=== PATIENT | male | born 1965 | race Caucasian/White ===

== ENCOUNTER → 2019-09-24 21:23 | Outpatient (CLI) | payer MEDICAID ==
[2019-09-24 21:38] LABS: EOSINOPHILS 4.3 % (0-7); HEMATOCRIT 48.4 % (42.0-54.0); HEMOGLOBIN 15.5 g/dL (13.5-17.5); IMMATURE GRANULOCYTES 0.2 % (0-5); LYMPHOCYTES 31.5 % (15-50); MEAN PLATELET VOLUME 10.5 fL (7.4-10.4); MONOCYTES 10.5 % (2-11); NEUTROPHILS 52.5 % (40-80); PLATELET COUNT 214 10x3/uL (130-400); RBC 4.84 10x6/uL (4.20-6.10); RDW 13.8 % (11.5-14.5); WBC 6.1 10x3/uL (4.8-10.8)
[2019-09-24 22:49] LABS: ERYTHROCYTE SEDIMENTATION RATE 1 mm/hr (0-20)
== END | disposition home or self-care (01) ==
LOC: D.LABREF 21:23
PROVIDERS: ATTEND Clinical Nurse Specialist Family Health
DX: M25.552 Pain in left hip (principal)

== ENCOUNTER → 2019-10-03 18:08 | Outpatient (CLI) | payer MEDICAID | END | disposition home or self-care (01) | LOC: D.LABREF 18:08 | PROVIDERS: ATTEND Orthopaedic Surgery | DX: M16.12 Unilateral primary osteoarthritis, left hip (principal) ==

== ENCOUNTER 2019-10-07 10:58 | Inpatient (IN) | payer MEDICAID ==
[~2019-10-07] VITALS: Ht 193 cm; Wt 127.3 kg
[2019-10-08] MEDS ORDERED: LIPITOR40 MG PO (14:20)
[2019-10-08] MEDS ORDERED: ASPIRIN EC81 M1 PO (14:20)
[2019-10-08] MEDS ORDERED: CYMBALTA60 MG PO (14:21)
[2019-10-08] MEDS ORDERED: LISINOPRIL40 MG PO (14:21)
[2019-10-08] MEDS ORDERED: TOPROL XL100 MG PO (14:21)
[2019-10-08] MEDS ORDERED: TRIAMTERENE-HC1 EAC3 PO (14:22)
[2019-10-09 11:41] LABS: EOSINOPHILS 4.6 % (0-7); HEMATOCRIT 48.7 % (42.0-54.0); IMMATURE GRANULOCYTES 0.1 % (0-5); LYMPHOCYTES 33.4 % (15-50); MCH 31.8 pg (26.0-34.0); MCHC 32.9 g/dL (31.0-37.0); MCV 96.8 fL (80.0-100.0); MONOCYTES 9.4 % (2-11); NEUTROPHILS 51.5 % (40-80); PLATELET COUNT 239 10x3/uL (130-400); RBC 5.03 10x6/uL (4.20-6.10); RDW 13.2 % (11.5-14.5); WBC 7.3 10x3/uL (4.8-10.8)
[2019-10-09 11:47] LABS: ANION GAP 7.8 mmol/L (8-16); CALCIUM 9.2 mg/dL (8.5-10.1); CARBON DIOXIDE 34.3 mmol/L (21.0-32.0); CREATININE - SERUM 1.3 mg/dL (0.6-1.3); POTASSIUM - SERUM 4.1 mmol/L (3.5-5.1)
[2019-10-09 11:50] LABS: INR 0.89 (0.85-1.17); PROTIME 12.1 SECONDS (11.6-15.0)
[2019-10-09 12:47] LABS: BILIRUBIN NEGATIVE (NEGATIVE); GLUCOSE NEGATIVE (NEGATIVE); KETONE NEGATIVE (NEGATIVE); NITRITE NEGATIVE (NEGATIVE); SPECIFIC GRAVITY 1.015 (1.005-1.020)
[2019-10-15 11:40] VITALS: BP 108/60; BMI 34.1
--- NOTE | 2019-10-15 20:10 | NUR ---
OK FOR PATIENT TO D/C TO MED 3 PER ANESTHESIA ON 6L [facility].
[2019-10-15 20:31] VITALS: BP 93/55
[2019-10-15 20:40] VITALS: BP 93/55; Ht 193 cm; Wt 127.3 kg
--- NOTE | 2019-10-15 21:16 | NUR ---
PT ARRIVED FROM PACU A&O. VS WNL. PT C/O PAIN IN RIGHT BUTTOCKS. RE-POSITIONED AND REMOVED EXTRA BEDDING. PIV IN RIGHT HAND, PATENT, NON TENDER, NO REDNESS OR SWELLING. INFUSING 1/2NS AT 50ML/HR. DRESSING ON LEFT HIP, DRY AND INTACT. PT O2 AT 96% ON 6L NC. PT USES CPAP FOR SLEEP APNEA AT NIGHT, SET IT UP NEXT TO BED. PT STATES PAIN AT 8/10, ADMIN PAIN MEDS PER ORDER. PT HAS 2500ML INPUT DURING OP, HAS NOT HAD OUTPUT YET. EDUCATED PT ON ISP, PT VERBALIZED UNDERSTANDING. EDUCATED PT ON CL FOR ANY NEEDS, VERBALIZED UNDERSTANDING. BED LOW, RAILS X2. CL IN REACH. WILL CONTINUE TO MONITOR.
[2019-10-16] VITALS: BP 113/74
[2019-10-16 03:50] VITALS: BP 143/83
--- NOTE | 2019-10-16 07:00 | NUR ---
PT RESTING IN BED WITH SPOUSE AT BEDSIDE. RESP EVEN AND UNLABORED. REPORTS PAIN 5/10 AT THIS TIME TO LEFT THIGH. IV TO RIGHT HAND WITH 1/2 NS @ 100ML/HR INFUSING VIA PUMP. SITE WITHOUT REDNESS OR EDEMA. DRESSING C/D/I TO LEFT GROIN. SCD'S IN PLACE TO BILAT LOWER EXTREMITIES. DENIES FURTHER NEEDS AT THIS TIME. CL WITHIN REACH. ENCOURAGED TO CALL WITH NEEDS. CONTINUE POC
[2019-10-16 07:18] LABS: HEMATOCRIT 37.5 % (42.0-54.0); HEMOGLOBIN 12.1 g/dL (13.5-17.5); MCH 31.3 pg (26.0-34.0); MCHC 32.3 g/dL (31.0-37.0); MCV 96.9 fL (80.0-100.0); RBC 3.87 10x6/uL (4.20-6.10); RDW 13.2 % (11.5-14.5); WBC 9.5 10x3/uL (4.8-10.8)
[2019-10-16 07:36] VITALS: BP 98/53
--- NOTE | 2019-10-16 08:30 | NUR ---
PT ASSISTED FROM BED TO BR WITH WALKER WITH MINIMAL ASSISTANCE. PT ABLE TO VOID AT THIS TIME. PT REQUEST TO SIT UP IN CHAIR AT BEDSIDE. [address] CL WITHIN REACH. INSTRUCTED PT TO CALL WITH ASSISTANCE IN TRANSFERING. PT VOICES UNDERSTANDING.
--- NOTE | 2019-10-16 08:45 | MORECARE ---
CASE MANAGEMENT DISCHARGE SUMMARY PATIENT: BRAULIO GONZALEZ JOSÉ MIGUEL UNIT: [id number] ADM DATE: 10/15/19 AGE: 54 : 67 SEX: M ROOM/BED: D.1211 AUTHOR: EROS SAWYER PHYSICIAN: REFERRING PHYSICIAN: AMY RAINEY DO DATE OF SERVICE: 10/16/19 Discharge Plan Patient Name: BRAULIO GONZALEZ Facility: [facility]:[place] : 1965 Planned Disposition: Home or Self Care Anticipated Discharge Date: Discharge Date: Expected LOS: Initial Reviewer: [email or web address] Initial Review Date: 10/15/2019 Generated: 10/16/19 9:45 am DCPIA - Discharge Planning Initial Assessment Updated by [email or web address]: Gardenia Jackson on 10/16/19 8:43 am * Is the patient Alert and Oriented? Yes * How many steps to enter\exit or inside your home? * PCP [facility] * [facility]acy [facility] * Preadmission Environment Home with Family * ADLs Independent * Equipment CPAP * List name and contact numbers for known caregivers / representatives who currently or will assist patient after discharge: ERIK () [phone] * Verbal permission to speak to the caregivers and representatives has been obtained from the patient. N/A * Community resources currently utilized None * Additional services required to return to the preadmission environment? Yes * Can the patient safely return to the preadmission environment? Yes * Has this patient been hospitalized within the prior 30 days at any hospital? No Patient Name: BRAULIO GONZALEZ Page [id number] at 0845 All edits/amendments must be made on the electronic document DICTATION DATE: 10/16/19844 WIRELESS SALES ASSOCIATE: BRADEN 10/16/19844 RPT#: [id number] DC DATE: STATUS: ADM IN [facility] [address] [place] [address] END OF REPORT
--- NOTE | 2019-10-16 09:05 | MORECARE ---
CASE MANAGEMENT DISCHARGE SUMMARY PATIENT: BRAULIO GONZALEZ JOSÉ MIGUEL UNIT: [id number] ADM DATE: 10/15/19 AGE: 54 : 67 SEX: M ROOM/BED: D.1211 AUTHOR: EROS SAWYER PHYSICIAN: REFERRING PHYSICIAN: AMY YANG DO DATE OF SERVICE: 10/16/19 Discharge Plan Patient Name: BRAULIO GONZALEZ Facility: [facility]:[place] : 1965 Planned Disposition: Home or Self Care Anticipated Discharge Date: Discharge Date: Expected LOS: Initial Reviewer: [email or web address] Initial Review Date: 10/15/2019 Generated: 10/16/19 10:04 am DCP- Discharge Planning Updated by [email or web address]: Gardenia Jackson on 10/16/19 7:[address] Patient Name: BRAULIO GONZALEZ Admission Status: Elective Accout number: [id number] Admission Date: 10-15-2019 : 1965 Admission Diagnosis: Attending: AMY YANG Current LOS: 1 Anticipated DC Date: Planned Disposition: Home or Self Care Primary Insurance: MEDICAID [place] Discharge Planning Comments: CM met with patient to complete initial dc planning assessment. CM educated patient on the CM role and verbal consent given by patient to complete assessment. Patient lives at home with his spouse where he is independent with his care. At discharge patient plans to return home and feels this is a safe discharge. 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 CM discussed availability of home health, rehab services, and medical equipment. He uses a CPAP at home. He stated that he needs a walker, I have called [facility] and spoke with Jenna and she has his order and will deliver it to the hospital when he is discharged. The patient does not think he needs physical therapy when discharged. He does it on his own. We will need to check with dr yang about that. Patient denied known discharge needs at this time. CM will continue to follow and will assist as needed with dc plans/needs. Police Captain: Gardenia Jackson DCPIA - Discharge Planning Initial Assessment Updated by [email or web address]: Gardenia Jackson on 10/16/19 8:43 am * Is the patient Alert and Oriented? Yes * How many steps to enter\exit or inside your home? * PCP [facility] * [facility] * Preadmission Environment Home with Family * ADLs Independent * Equipment CPAP * List name and contact numbers for known caregivers / representatives who currently or will assist patient after discharge: ERIK () [phone] * Verbal permission to speak to the caregivers and representatives has been obtained from the patient. N/A * Community resources currently utilized None * Additional services required to return to the preadmission environment? Yes * Can the patient safely return to the preadmission environment? Yes * Has this patient been hospitalized within the prior 30 days at any hospital? No Last DP export: 10/16/19 7:45 am Patient Name: BRAULIO GONZALEZ Page [phone] at 0905 All edits/amendments must be made on the electronic document DICTATION DATE: 10/16/19903 GLOBAL SUPPLY CHAIN DIRECTOR: BRADEN 10/16/19903 RPT#: [id number] DC DATE: STATUS: ADM IN [facility] [address] [place] [address] END OF REPORT
--- NOTE | 2019-10-16 09:35 | NUR ---
PT AMBULATING IN HALLWAY WITH PHYSCAL THERAPY. PT DEYANIRA WELL. PT RETURNED TO CHAIR AT BEDSIDE. DENIES FURTHER NEEDS AT THIS TIME. CL WITHIN REACH. ENCOURAGED TO CALL WITH NEEDS.
--- NOTE | 2019-10-16 10:44 | OP ---
PATIENT NAME: BRAULIO GONZALEZ JOSÉ MIGUEL MEDICAL RECORD: [id number] :67 LOCATION:D.M3 D.1211 ADMISSION DATE:10/15/19 SURGEON: GERRY RAINEY DO DATE OF OPERATION: 10/15/2019 PROCEDURE PERFORMED: Revision left total hip arthroplasty. 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 INDICATIONS: Mr. Contreras is a 54-year-old male who had a Edwards hip put in several years ago. He got notice it is on recall, that it caused high levels of cobalt in the body as well as other metals and he had a test and he indeed was elevated. He noticed he was not feeling well, initially did not want to do anything about it, but then he started not feeling well and he was all set up and ready to go to [place] to have it done and then had it, he moved [place]. He then came to my office and asked if I would do that. I told him I would, but he would be at increased risk for infection, fracture, bleeding, continued pain, need for further surgery, blood clots, change of failure of implants and even and he signed the consent. SURGEON: Gerry Rainey DO DESCRIPTION OF PROCEDURE: The patient was taken to the operative suite, laid in supine position, given 2 grams Ancef, 80 mg of gentamicin and a gram of TXA. He was then sedated and intubated. After he was sedated and intubated, he was placed over on [place] table and positioned. The left hip was then prepped and draped in sterile fashion. Timeout was performed. Everyone was in agreeance with correct side, site, patient and procedure. I then began over the tensor fascia vane muscle and made the incision. Careful dissection down to the muscle belly and took the fascia, anterior muscle belly posteriorly and then opened the rectus interval and took the rectus medially and the tensor fascia laterally and then encountered the ascending branch of lateral femoral circumflex artery and tied it off and coagulated it and then cut it. I then exposed the capsule and opened up the capsule and exposed the femur. I then dislocated the hip and removed the head and then with great difficulty, I removed the trunnion that was on there and then in the stem. Using osteotomes, flexible osteotomes around it, the stem and finally got it loose and removed it. I then noticed there is some black tissue around the femur and I removed all that and all the tissue in the area that I could get and sent it with the stem and the trunnion. He had a 40 head. I then began reaming and reamed up to a 15 and put 15 stem down for the broach and broached to 15. I thought it fit well, but it did not, we could not reduce the hip and decided to go up higher, 16 did not fit and then next was an 18. We then reamed to an 18 and put an 18 trial in, broached and it did not go all the way down, so we reamed to an 18-1/2 and then put an 18 Donald 1 piece 175 mm stem high offset porous stem that fit very well and had good distal fixation and then put a standard neck on 40 head and reduced it. It had equal lengths to the right side on the lesser trochanter. I then removed the head, the trial head and put on a 40 Biolox ceramic head and reduced it with standard neck and then he had very good motion. X-rays were taken. There were no fracture is seen in the femur and good fixation distally. I then irrigated with a 10% povidone iodine in 500 mL of normal saline, allowed to sit in the wound for 3 OPERATIVE REPORT [id number] BRAULIO GONZALEZ minutes and irrigated that out with a liter of normal saline. I then put in Ignacio and vancomycin and tobramycin powder. I then did repair of the tensor fascia vane muscle back to the pelvis. I did so with #2 Ethibond in a Nima-Bola stitch and then closed the tensor fascia vane fascia with #1 Vicryl in a [id number] fashion running on the skin, assisted by Mauricio Verdin, surgical assistant pastry chef student. I closed the skin with him with 2-0 Vicryl in an inverted interrupted fashion. I then ran a 4-0 Monocryl running on the skin subcuticularly and placed a Prineo glue on the skin. He has been dressed with a Telfa and Tegaderm. Awakened and taken to recovery in stable condition. Blood loss approximately 500 mL. COMPLICATIONS: None. TRANSINT:[id number] Voice Confirmation ID: [id number] DOCUMENT ID: [id number] GERRY RAINEY DO at 1044 CC: [id number] DICTATION DATE: 10/15/192009 CRYSTAL MOUNTER: 10/16/19 0232 ADM IN [facility] [address] [place] [address]
[2019-10-16] MEDS ORDERED: oxyCODONE IR PO (12:12)
[2019-10-16] MEDS ORDERED: VISTARIL50 MG PO (12:12)
[2019-10-16] MEDS ORDERED: ELIQUIS2.5 MG PO (12:12)
[2019-10-16] MEDS ORDERED: KEFLEX500 MG PO (12:13)
--- NOTE | 2019-10-16 13:25 | NUR ---
PT IV DISCONTINUED TO RIGHT HAND. DISCHARGE PAPERWORK PROVIDED WITH PRESCRIPTIONS. DISCUSSED NEW SCRIPTS AND IMPORTANCE OF BLOOD THINNER. PT DENIES QUESTIONS. PT TAKEN OUT TO PRIVATE VEHICLE WITH ALL PERSONAL BELONGINGS.
--- NOTE | 2019-10-16 15:44 | MORECARE ---
CASE MANAGEMENT DISCHARGE SUMMARY PATIENT: BRAULIO GONZALEZ JOSÉ MIGUEL UNIT: [id number] ADM DATE: 10/15/19 AGE: 54 : 67 SEX: M ROOM/BED: D.1211 AUTHOR: SILVERIODOC PHYSICIAN: REFERRING PHYSICIAN: AMY YANG DO DATE OF SERVICE: 10/16/19 Discharge Plan Patient Name: BRAULIO GONZALEZ Facility: [facility]:[place] : 1965 Planned Disposition: Home or Self Care Anticipated Discharge Date: Discharge Date: 10/16/2019 Expected LOS: Initial Reviewer: [email or web address] Initial Review Date: 10/15/2019 Generated: 10/16/19 4:44 pm Comments DCP- Discharge Planning Updated by [email or web address]: Gardenia Jackson on 10/16/19 2:[address] PATIENT DISCHARGED HOME AND PER DR YANG DID NOT NEED PT DCP- Discharge Planning Updated by [email or web address]: Gardenia Jackson on 10/16/19 7:[address] Patient Name: BRAULIO GONZALEZ Admission Status: Elective Accout number: [id number] Admission Date: 10-15-2019 : 1965 Admission Diagnosis: Attending: AMY YANG Current LOS: 1 Anticipated DC Date: Planned Disposition: Home or Self Care Primary Insurance: MEDICAID [place] Discharge Planning Comments: CM met with patient to complete initial dc planning assessment. CM educated patient on the CM role and verbal consent given by patient to complete assessment. Patient lives at home with his spouse where he is independent with his care. At discharge patient plans to return home and feels this is a safe discharge. 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 CM discussed availability of home health, rehab services, and medical equipment. He uses a CPAP at home. He stated that he needs a walker, I have called [facility] and spoke with Jenna and she has his order and will deliver it to the hospital when he is discharged. The patient does not think he needs physical therapy when discharged. He does it on his own. We will need to check with dr yang about that. Patient denied known discharge needs at this time. CM will continue to follow and will assist as needed with dc plans/needs. Ceramic Tile Installation Helper: Gardenia Jackson DCPIA - Discharge Planning Initial Assessment Updated by [email or web address]: Gardenia Jackson on 10/16/19 8:43 am * Is the patient Alert and Oriented? Yes * How many steps to enter\exit or inside your home? * [facility]CP [facility] * [facility] * Preadmission Environment Home with Family * ADLs Independent * Equipment CPAP * List name and contact numbers for known caregivers / representatives who currently or will assist patient after discharge: ERIK () [phone] * Verbal permission to speak to the caregivers and representatives has been obtained from the patient. N/A * Community resources currently utilized None * Additional services required to return to the preadmission environment? Yes * Can the patient safely return to the preadmission environment? Yes * Has this patient been hospitalized within the prior 30 days at any hospital? No Last DP export: 10/16/19 8:05 am Patient Name: BRAULIO GONZALEZ Page [id number] at 1544 All edits/amendments must be made on the electronic document DICTATION DATE: 10/16/19 1544 FISCAL ASSISTANT: BRADEN 10/16/19 1544 RPT#: [id number] DC DATE:10/16/19 STATUS: DIS IN [facility] [address] [place] [address] END OF REPORT
--- NOTE | 2019-10-17 16:12 | MORECARE ---
CASE MANAGEMENT DISCHARGE SUMMARY PATIENT: BRAULIO GONZALEZ JOSÉ MIGUEL UNIT: [id number] ADM DATE: 10/15/19 AGE: 54 : 67 SEX: M ROOM/BED: D.1211 AUTHOR: SILVERIODOC PHYSICIAN: REFERRING PHYSICIAN: AMY YANG DO DATE OF SERVICE: 10/17/19 Discharge Plan Patient Name: BRAULIO GONZALEZ Facility: [facility]:[place] : 1965 Planned Disposition: Home or Self Care Anticipated Discharge Date: Discharge Date: 10/16/2019 Expected LOS: Initial Reviewer: [email or web address] Initial Review Date: 10/15/2019 Generated: 10/17/19 5:12 pm Comments DCP- Discharge Planning Updated by [email or web address]: Gardenia Jackson on 10/16/19 2:[address] PATIENT DISCHARGED HOME AND PER DR YANG DID NOT NEED PT DCP- Discharge Planning Updated by [email or web address]: Gardenia Jackson on 10/16/19 7:[address] Patient Name: BRAULIO GONZALEZ Admission Status: Elective Accout number: [id number] Admission Date: 10-15-2019 : 1965 Admission Diagnosis: Attending: AMY YANG Current LOS: 1 Anticipated DC Date: Planned Disposition: Home or Self Care Primary Insurance: [place]ICAID [place] Discharge Planning Comments: CM met with patient to complete initial dc planning assessment. CM educated patient on the CM role and verbal consent given by patient to complete assessment. Patient lives at home with his spouse where he is independent with his care. At discharge patient plans to return home and feels this is a safe discharge. 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 CM discussed availability of home health, rehab services, and medical equipment. He uses a CPAP at home. He stated that he needs a walker, I have called [facility] and spoke with Jenna and she has his order and will deliver it to the hospital when he is discharged. The patient does not think he needs physical therapy when discharged. He does it on his own. We will need to check with dr yang about that. Patient denied known discharge needs at this time. CM will continue to follow and will assist as needed with dc plans/needs. Drug Discovery Informatics Specialist: Gardenia Jackson DCPIA - Discharge Planning Initial Assessment Updated by [id number]: Gardenia Jackson on 10/16/19 8:43 am * Is the patient Alert and Oriented? Yes * How many steps to enter\exit or inside your home? * [facility]CP [facility] * [facility] * Preadmission Environment Home with Family * ADLs Independent * Equipment CPAP * List name and contact numbers for known caregivers / representatives who currently or will assist patient after discharge: ERIK () [phone] * Verbal permission to speak to the caregivers and representatives has been obtained from the patient. N/A * Community resources currently utilized None * Additional services required to return to the preadmission environment? Yes * Can the patient safely return to the preadmission environment? Yes * Has this patient been hospitalized within the prior 30 days at any hospital? No Last DP export: 10/16/19 2:44 pm Patient Name: BRAULIO GONZALEZ Page [phone] at 1612 All edits/amendments must be made on the electronic document DICTATION DATE: 10/17/19 1612 CABLE MACHINE OPERATOR: BRADEN 10/17/19 1612 RPT#: [id number] DC DATE:10/16/19 STATUS: DIS IN [facility] [address] [place] [address] END OF REPORT
== END 2019-10-16 13:38 | disposition home or self-care (01) | DRG 468 ==
LOC: D.SDCHOLD 10-09 10:00 → D.M3 10-15 10:55 → D.SDCHOLD 10-15 11:25 → D.M3 10-15 19:49
PROVIDERS: ADMIT Orthopaedic Surgery; ATTEND Orthopaedic Surgery
PROC: 0SPS0JZ Removal of Synthetic Substitute from Left Hip Joint, Femoral Surface, Open Approach (ICD-10-PCS; 2019-10-15)
PROC: 0SRS03Z Replacement of Left Hip Joint, Femoral Surface with Ceramic Synthetic Substitute, Open Approach (ICD-10-PCS; principal; 2019-10-15 13:00)
DX: T84.091A Other mechanical complication of internal left hip prosthesis, initial encounter (principal); X58.XXXA Exposure to other specified factors, initial encounter; I10 Essential (primary) hypertension; K21.9 Gastro-esophageal reflux disease without esophagitis; Z72.0 Tobacco use; T65.891A Toxic effect of other specified substances, accidental (unintentional), initial encounter

== ENCOUNTER 2019-11-20 10:33 | Day surgery (SDC) | payer MEDICAID ==
[~2019-11-20] VITALS: Ht 193 cm; Wt 122.5 kg
[~2019-11-20 10:33] MED LIST: ASPIRIN EC81 M1 PO; CYMBALTA60 MG PO; ELIQUIS2.5 MG PO; KEFLEX500 MG PO; LIPITOR40 MG PO; LISINOPRIL40 MG PO; TOPROL XL100 MG PO; TRIAMTERENE-HC1 EAC3 PO; VISTARIL50 MG PO; oxyCODONE IR PO
[2019-11-20 11:10] LABS: BASOPHILS 0.6 % (0-2); EOSINOPHILS 3.3 % (0-7); HEMOGLOBIN 13.2 g/dL (13.5-17.5); IMMATURE GRANULOCYTES 0.1 % (0-5); LYMPHOCYTES 32.3 % (15-50); MCH 29.7 pg (26.0-34.0); MCHC 32.2 g/dL (31.0-37.0); MCV 92.1 fL (80.0-100.0); MEAN PLATELET VOLUME 9.5 fL (7.4-10.4); MONOCYTES 8.6 % (2-11); NEUTROPHILS 55.1 % (40-80); RBC 4.45 10x6/uL (4.20-6.10)
[2019-11-20 11:17] LABS: PLATELET COUNT 330 10x3/uL (130-400)
[2019-11-20] MEDS ORDERED: BAYER CHEWABLE81 MG PO (11:38)
[2019-11-20] MEDS ORDERED: CIPRO500 MG PO (11:40)
[2019-11-20 11:41] VITALS: BP 141/95; Ht 193 cm; Wt 122.5 kg
--- NOTE | 2019-11-20 14:43 | NUR ---
1430 IV REMOVED AND PRESSURE HELD. INSTRUCTIONS GIVEN
--- NOTE | 2019-11-21 07:31 | OP ---
PATIENT NAME: BRAULIO GERBER MEDICAL RECORD: [id number] :[birth year] LOCATION:D.OPS ADMISSION DATE: SURGEON: AMY RAINEY DO DATE OF OPERATION: 11/20/2019 PROCEDURE PERFORMED: Left hip wound irrigation and debridement with Kerecis and wound VAC application. PREOPERATIVE DIAGNOSIS: Left hip wound dehiscence. POSTOPERATIVE DIAGNOSIS: Left hip wound dehiscence. INDICATIONS: Mr. Gerber is a 54-year-old male who underwent revision left total hip approximately a month ago. He was doing well until about last week, when he started to get some wound dehiscence. He smokes a lot, lot more than he used to. Informed him it is very bad for the skin as far as healing and is likely the cause. She was doing well prior to that and did not have any problems and he came to clinic this morning, n.p.o. and I informed him that we need to do. He did have about 6 cm x 1 cm area. The wound was opening up; however, it was purely superficial and there is good granulation tissue underneath. There is no drainage, no signs of infection and he did not have an elevated white count. He did not have any hip pain either. I informed that we put the Kerecis on it after debriding it and wound VAC and leave the wound VAC for about a week. He is okay with that and was aware of the risks of infection, bleeding, damage to nerves and vessels, need for further surgery, even up to a revision hip I and D. He is aware of that and signed the consent. SURGEON: Amy Rainey DO DESCRIPTION OF PROCEDURE: The patient was taken to the operative suite, laid in supine position, given general anesthetic and LMA was placed. The left hip was then prepped and draped in sterile fashion. A timeout was performed; everyone was in agreement with the correct side, site, patient and procedure. I then took a 10 blade scalpel and did removed the distal skin around the dehisced part which ended up being approximately 6 cm x 1 cm and less than about a millimeter too deep with good bleeding granulation tissue underneath it. I then irrigated with 3 liters normal saline and then sutured it in a 3 x 7 Kerecis patch with 4-0 Monocryl. I was assisted by Jenny Samuels certified surgical first leveler student. She assisted with closing as well as placing dressing and holding retraction. The Prevena plus was then placed and was holding good suction. He was then awakened and taken to recovery in stable condition. BLOOD LOSS: Minimal. COMPLICATIONS: None. TRANSINT:[id number] Voice Confirmation ID: [id number] DOCUMENT ID: [id number] OPERATIVE REPORT [id number] BRAULIO GERBER,AMY Martin DO at 0731 CC: [id number] DICTATION DATE: 11/20/19 1308 INSURANCE AUDITOR: 11/21/19 0111 [facility] 11/20/19 [facility] [address] [place] [address]
== END 2019-11-20 14:44 | disposition home or self-care (01) ==
LOC: D.OPS 10:33
PROVIDERS: Anesthesiology; ATTEND Orthopaedic Surgery
DX: T81.30XA Disruption of wound, unspecified, initial encounter (principal); T85.9XXA Unspecified complication of internal prosthetic device, implant and graft, initial encounter